=== PATIENT | female | born 1950 | race Caucasian/White ===

== ENCOUNTER 2022-02-28 16:01 | Outpatient (CLI) | payer MEDICARE, SELFPAY | END 2022-02-28 16:02 | disposition home or self-care (01) | LOC: NFLDUCREF 03-02 14:11 | PROVIDERS: PCP Family Medicine; Visit Provider Student in an Organized Health Care Education/Training Program | DX: R30.0 Dysuria (principal); N39.0 Urinary tract infection, site not specified | CPT/HCPCS: 87086 ==

== ENCOUNTER 2022-12-08 09:34 | Outpatient (CLI) | payer MEDICARE, SELFPAY | END 2022-12-08 09:35 | disposition home or self-care (01) | PROVIDERS: PCP Family Medicine; Visit Provider Family Medicine | DX: R73.03 Prediabetes (principal); R53.83 Other fatigue; Z13.6 Encounter for screening for cardiovascular disorders; M25.559 Pain in unspecified hip; M54.50 Low back pain, unspecified; Z79.1 Long term (current) use of non-steroidal anti-inflammatories (NSAID) | CPT/HCPCS: 80053; 80061 ==

== ENCOUNTER 2023-03-09 13:49 | Outpatient (CLI) | payer MEDICARE, SELFPAY ==
--- NOTE | 2023-03-09 14:00 | CRLHL7_ITS ---
For Patients: As a result of the Century Cures Act, medical imaging exams and procedure reports are released immediately into your electronic medical record. You may view this report before your referring provider. If you have questions, please contact your health care provider. BILATERAL SCREENING MAMMOGRAM WITH COMPUTER-AIDED DETECTION AND TOMOSYNTHESIS TECHNIQUE: CC and MLO views were obtained. These mammographic images have been obtained using full-field digital technique. These mammographic images were interpreted with the benefit of computer-aided detection. Breast Tomosynthesis was used in this interpretation. COMPARISON FILM: 03/19/20, 07/04/12. FINDINGS: The breasts are heterogeneously dense, which may obscure small masses. IMPRESSION: There is no radiographic evidence for malignancy. ASSESSMENT: BI-RADS Category 2: Benign RECOMMENDATION: Routine screening mammogram in 1 year. A lay language report of this examination will be provided to the patient. Jacinto Berumen M.D. Diagnostic Radiologist [email or web address] SP/Dictated by: Jacinto Berumen MD @ 03/10/2023 9:16:00 AM (Electronically Signed)
== END 2023-03-09 13:50 | disposition home or self-care (01) ==
LOC: MAMMO 13:50
PROVIDERS: PCP Family Medicine; Visit Provider Family Medicine
DX: Z12.31 Encounter for screening mammogram for malignant neoplasm of breast (principal); R92.2 Inconclusive mammogram
CPT/HCPCS: 77063; 77067

== ENCOUNTER 2023-03-16 10:45 | Outpatient (RCR) | payer MEDICARE, SELFPAY ==
--- NOTE | 2022-12-20 12:03 | PT.OPEX ---
[facility] PT [facility] Outpatient Eval Start: 12/19/22 12:13 Freq: Status: Active Protocol: Document 12/20/22 06:59 MLS (Rec: 12/20/22 12:00 MLS [email or web address]) E-signed By Jackie Coleman DPT Physical Therapy Outpatient Evaluation Insurance Information Recert Due Date 03/19/23 Insurance Name Medicare B Medical Diagnosis M54.50 Low back pain Treating Diagnosis M54.50 Low back pain (right) Referring MD Kim Jackman MD Subjective Subjective Patient is a 72 year old female who presents to physical therapy with signs and symptoms consistent with low back pain. She states that she has had back pain on and off her whole life. Over the past few of weeks, her back pain has significantly gotten worse and it is radiating into her right leg. She states that she woke up one morning and bent forward to reach for something and felt pain in her right low back. She states that the pain is worse at night. It started on the right side of her low back and now goes down the front of her leg. She states that it was just going down to her knee but is now going down to the front of her calf. She states that she did see a chiropractor but it didn't help. She went to see her physician and got steroids and pain meds, which did not help. She reports that she did get an xray, which showed significant OA changes in low back. She states that she had two days where it felt better but has since returned and been just as bad. She states that she does get a little numbness down her leg but no tingling. She states that going down stairs is worse than going up. When she wakes up in the morning it is bad and she wakes up 2-3 times per night. She reports that she used to sleep on her right side, but she has been trying to sleep on back or left side. She states that she ices in the morning. She reports that she feels pain during the day and its tolerable, but then it gets really bad in the night. Her current exercise includes going to the [employer], walking and light weights about 4xweek . Currently, trying to walk but has decreased weights. Aggravating factors include: sitting, sleeping. Alleviating factors include: ibuprofen. Significant past medical history includes osteoarthritis and neck pain. Patient would like to achieve less pain and better sleep through physical therapy sessions. 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 Preferred Name Karie Objective Other/Pertinent Objective Posture Assessment: normal LUMBAR ROM Flexion: 100% repeated flexion: no increase in pain Extension: 50% repeated ext: no increase in pain Right Sidebend: 75% Left Sidebend: 50% Right Rotation: 75% Left Rotation: 50% LE MMT Hip flexion: R 3/5 L 4/5 Hip Extension: R 4/5 L 4/5 Hip abduction: R 3/5 L 4/5 Knee extension: R 4/5 L 4/5 Knee Flexion: R 4/5 L 4/5 Dorsiflexion/heel walk: R 4/5 L 4/5 Plantarflexion/toe walk:R 4/5 L 4/5 Great Toe Extension: R 4/5 L 4 /5 JOINT MOBILITY/PALPATION Severe tenderness to palpation of right piriformis and QL SPECIAL TESTS -Quadrant test: positive on right for mild increase in pain -Single leg stance: 5 seconds , no increase in pain -Slump test: positive on right for mild increase in pain -Straight leg raise: negative SI/HIP -FRANCISCA: negative -FADIR: negative TX: Access Code: [email or web address] URL: [email or web address] Date: 12/20/2022 Prepared by: Jackie Coleman Exercises - Prone Press Up On Elbows - 1 x daily - 7 x weekly - 3 sets - 10 reps - Supine Posterior Pelvic Tilt - 1 x daily - 7 x weekly - 3 sets - 10 reps - Supine Figure 4 Piriformis Stretch - 1 x daily - 7 x weekly - 3 sets - 10 reps Educated on sleeping on side with body pillow or folded pillow between knees Functional Test Performed & Score 29/50 Modified Oswestry Low Back Pain Questionnaire Assessment Assessment/Impression Pt is a 72 year old female who presents with concerns of right low back pain. Patient also has notable objective findings including limited ROM , tenderness to palpation, and decreased strength which are also likely contributing to the problem. Patient is a good candidate for skilled therapy to target deficits described above. Skilled PT intervention is necessary for use of therapeutic exercise manual therapy, neuromuscular re- education, gait training, and therapeutic activity. Functional impairments include difficulty with: sitting, sleeping and exercise. See appropriate sections of PT eval for complete list of goals and POC. D/C plan and criteria is for pt to achieve the goals as listed below or until max rehab potential is met. Pt was agreeable with plan of care and goals established. Primary Functional Limitations sitting sleeping ADLs Plan of Care Rehabilitation Potential Good Physical Therapy Goals ST.Pt will demonstrate independence in performance of home exercise program with the use of video and/or handouts in order to optimize functional mobility and reduce risk for re-injury. 2.Pt will demonstrate consistent HEP compliance to ensure progress in reaching established goals during course of care. 3.Patient will be able to sit for up to one hour without pain. 4.Patient will report pain levels <2/10 with all activities in order to improve functional mobility at home, work and during functional leisure activities. LT.Patient is able to sleep without waking more than one time due to pain in a 6-8 hour time frame. 6.Patient will be able to walk up to one mile without pain. 7.Patient will be able to bend and lift household items from the floor to shoulder height to perform ADLs without pain. 8.Pt will be able to ascend/ descend 1 flight of stairs in order to perform ADLs pain free. 9.Pt will exhibit 5 pt improvement in Modified Oswestry Outcome measure to demonstrate functional improvement and progress towards goals Coordination/Communication With Referral Source Treatment Plan/Direct Interventions Manual Therapy,Therapeutic Activities,Therapeutic Exercises Patient Will Be Discharged From Therapy Independently Progressing Evaluation Billing Untimed Code Treatment Minutes 30 Complexity Low Certification Information Physician Comment/Change : Physician NPI Number #
== END 2023-05-03 09:15 | disposition home or self-care (01) ==
PROVIDERS: PCP Family Medicine; Visit Provider Family Medicine
DX: M54.50 Low back pain, unspecified (principal); Z51.89 Encounter for other specified aftercare
CPT/HCPCS: 97110; 97140; 97161

== ENCOUNTER 2023-09-01 07:02 | Outpatient (CLI) | payer MEDICARE, SELFPAY | END 2023-09-01 07:03 | disposition home or self-care (01) | LOC: NFLDREF 07:03 | PROVIDERS: PCP Family Medicine; Visit Provider Family Medicine | DX: R39.9 Unspecified symptoms and signs involving the genitourinary system (principal); R35.0 Frequency of micturition; R10.2 Pelvic and perineal pain | CPT/HCPCS: 87086 ==

== ENCOUNTER 2023-12-19 08:31 | Outpatient (CLI) | payer MEDICARE, SELFPAY | END 2023-12-19 08:32 | disposition home or self-care (01) | LOC: NFLDREF 12-22 10:41 | PROVIDERS: PCP Family Medicine; Referring Provider Family Medicine; Visit Provider Family Medicine | DX: R79.89 Other specified abnormal findings of blood chemistry (principal); R73.03 Prediabetes | CPT/HCPCS: 80053 ==

== ENCOUNTER 2024-01-18 15:10 | Outpatient (CLI) | payer MEDICARE, SELFPAY ==
--- NOTE | 2024-01-18 15:30 | CRLHL7_ITS ---
For Patients: As a result of the Century Cures Act, medical imaging exams and procedure reports are released immediately into your electronic medical record. You may view this report before your referring provider. If you have questions, please contact your health care provider. DXA BONE MINERAL DENSITY STUDY Reason for exam: Asymptomatic menopausal state. Current height (in): 68. Weight (lb): 135. Menopause age: 46. Ethnicity: White. 1. Have you had a previous hip or vertebral fracture? No. 2. Have you had any fractures during your adult life which did not result from significant trauma (e.g., auto accident)? No. 3. Did either of your parents have a hip fracture? No. 4. Do you smoke? Yes. 5. Have you ever taken Glucocorticoids? No. 6. Do you have rheumatoid arthritis? No. 7. Do you have secondary osteoporosis? No. 8. Do you drink 3 or more alcoholic drinks per day? No. 9. Are you being treated for osteoporosis? No. 10. Have you ever taken any of the following medications: Actonel, Evista, Fosamax, Miacalcin, Reclast, Boniva, Forteo, HRT (i.e., estrogen/hormone therapy), Protelos, Prolia, Vitamin D, Calcium, other ??? please specify. ANSWER: Yes, vitamin D, HRT (i.e., estrogen/hormone therapy), and calcium. 11. Do you have any of the following medical conditions: Anorexia or bulimia, asthma or emphysema, end stage renal disease, hyperparathyroidism, any seizure disorders, cancer, inflammatory bowel diseases, hysterectomy, other ??? please specify. ANSWER: No. 12. What was your maximum height (inches)? 68.5. 13. Do you perform weight bearing exercise regularly? Yes. 14. Do you regularly consume dairy products? Yes. 15. Do you drink caffeinated beverages? Yes. 16. At what age did your period start? 12. 17. Are you premenopausal? No. 18. How many full-term pregnancies have you had? 0. 19. Have you ever missed your period for more than 6 months in a row (not including or menopause)? No. TECHNIQUE: Bone mineral density study was performed using the [employer]. FINDINGS: The results of the study expressed as bone mineral density (BMD) are as follows: Lumbar spine L2 to L4: BMD: 1.104 g/cm2. T-score: 0.2. Z-score: 2.6 Neck Left: BMD: 0.922 g/cm2. T-score: 0.7. Z-score: 2.6 Right: BMD: 0.909 g/cm2. T-score: 0.5. Z-score: 2.5 Total Left: BMD: 1.017 g/cm2. T-score: 0.6. Z-score: 2.3 Right: BMD: 1.037 g/cm2. T-score: 0.8. Z-score: 2.5 IMPRESSION: Normal bone density. *Comparison exams done prior to 07/2019 were performed on different unit, [facility]. COMPARISON: Compared with scan of 03/19/2020, the bone mineral density has increased by 2.8 percent at the spine, decreased by 1.7 percent at the right hip, and decreased by 1.2 percent at the left hip. ÁNGEL RODRIGUEZ M.D. Transcribed: 8:52 a.m. [email or web address] timur/Dictated by: Ángel Rodriguez MD @ 01/19/2024 8:41:00 AM (Electronically Signed)
== END 2024-01-18 15:11 | disposition home or self-care (01) ==
LOC: RAD 15:11
PROVIDERS: PCP Family Medicine; Visit Provider Family Medicine
DX: Z78.0 Asymptomatic menopausal state (principal)
CPT/HCPCS: 77080

== ENCOUNTER 2024-03-21 15:04 | Outpatient (CLI) | payer MEDICARE, SELFPAY ==
--- NOTE | 2024-03-21 15:20 | CRLHL7_ITS ---
For Patients: As a result of the Century Cures Act, medical imaging exams and procedure reports are released immediately into your electronic medical record. You may view this report before your referring provider. If you have questions, please contact your health care provider. BILATERAL DIGITAL SCREENING MAMMOGRAM WITH COMPUTER-AIDED DETECTION AND TOMOSYNTHESIS CLINICAL HISTORY: Routine screening exam. COMPARISON: 03/09/23, 03/19/20, 07/04/12. TECHNIQUE: Digital mammogram in CC and MLO projections including computer-aided detection (CAD). Tomosynthesis was used in this interpretation. BREAST COMPOSITION: The breasts are heterogeneously dense, which may obscure small masses. FINDINGS: RIGHT Breast: No suspicious findings. LEFT Breast: Focal asymmetric density retroareolar plane slightly lateral, 6 cm from the nipple. IMPRESSION: LEFT breast asymmetry/mass. RECOMMENDATIONS: Additional mammographic views of the LEFT breast including 3D spot compression CC/MLO. LEFT breast ultrasound may also be required. The [facility] will contact the patient for follow-up. A lay language report of this examination will be provided to the patient. BI-RADS Category 0: Incomplete: Need Additional Imaging Evaluation Dictated by Jacinto Berumen MD @ 03/22/2024 11:04:58 AM /sp SP/Dictated by: Jacinto Berumen MD @ 03/22/2024 11:04:00 AM (Electronically Signed)
== END 2024-03-21 15:05 | disposition home or self-care (01) ==
LOC: MAMMO 15:05
PROVIDERS: PCP Family Medicine; Visit Provider Family Medicine
DX: Z12.31 Encounter for screening mammogram for malignant neoplasm of breast (principal); R92.333 Mammographic heterogeneous density, bilateral breasts; Z12.2 Encounter for screening for malignant neoplasm of respiratory organs; F17.210 Nicotine dependence, cigarettes, uncomplicated
CPT/HCPCS: 71271; 77063; 77067

== ENCOUNTER 2024-04-04 10:28 | Outpatient (CLI) | payer MEDICARE, SELFPAY | END 2024-04-04 10:29 | disposition home or self-care (01) | PROVIDERS: PCP Family Medicine; Visit Provider Family Medicine | DX: N63.20 Unspecified lump in the left breast, unspecified quadrant (principal); R92.8 Other abnormal and inconclusive findings on diagnostic imaging of breast | CPT/HCPCS: 76642; 77065; G0279 ==

== ENCOUNTER 2024-04-12 10:01 | Outpatient (CLI) | payer MEDICARE, SELFPAY | END 2024-04-12 10:02 | disposition home or self-care (01) | LOC: US 10:02 | PROVIDERS: PCP Family Medicine; Visit Provider Family Medicine | DX: N63.20 Unspecified lump in the left breast, unspecified quadrant (principal); N60.32 Fibrosclerosis of left breast | CPT/HCPCS: 19083; 77065; 88305; A4648; A4649 ==